=== PATIENT | male | born 1950 | race Caucasian/White ===

== ENCOUNTER 2017-01-01 10:01 | Day surgery (SDC) | payer OTHER ==
[~2017-01-01] VITALS: Ht 182.9 cm; Wt 92.0 kg
[2017-01-01] VITALS (7 sets, daily range): BP systolic 119–132; BP diastolic 62–72; PULSE 87–102; RESP 10–18
[~2017-01-01 10:01] MED LIST: AMIT25TA9 PO; AMLO-218 PO; ASPI-535 PO; CEFAZOLIN 2 GM/50 ML (PMX) 50 ML IVPB SCH; GABA400C14 PO; LISI40TA9 PO; MVI IV; OMEG-135 PO; PRAV40TA76 PO; SOD CHLORIDE 0.9% 1,000 ML IV SCH; TRAM50TA2 PO; TRHC5025 PO
[2017-01-01] MEDS ORDERED: CEFAZOLIN 2 GM/50 ML (PMX) 50 ML IVPB SCH (10:30)
[2017-01-01] MEDS ORDERED: LIDOCAINE 2% (SDV) 5 ML INJ ONE (12:40)
[2017-01-01] MEDS ORDERED: FENTAnyl 50 MCG/ML VIAL ONE (12:40)
[2017-01-01] MEDS ORDERED: SUCCINYLCHOLINE CHLORIDE 100 MG/5 ML SYG IV ONE (12:40)
[2017-01-01] MEDS ORDERED: PROPOFOL 20 ML ONE (12:40)
[2017-01-01] MEDS ORDERED: ROCURONIUM 50 MG INJ ONE (12:40)
[2017-01-01] MEDS ORDERED: MIDAZOLAM 1 MG/ML 2 ML INJ ONE (12:40)
[2017-01-01] MEDS ORDERED: GLYCOPYRROLATE 1 MG INJ ONE (12:40)
[2017-01-01] MEDS ORDERED: NEOSTIGMINE 3 MG/3 ML SYRINGE ONE (12:40)
--- NOTE | 2017-01-01 12:46 | HPN ---
Date/Time of Note Date/Time of Note DATE: 01/01/17 TIME: 12:46 Interval H&P Admission Note Pt. seen H&P reviewed: No system changes BAL FONSECA MD Jan 01, 2017 12:46
[2017-01-01] MEDS ORDERED: HYDROCODONE/APAP (5/325) TAB PO PRN (14:00)
--- NOTE | 2017-01-01 15:37 | OPR ---
DATE OF OPERATION: 01/01/2017 PREOPERATIVE DIAGNOSIS: Bladder tumors. POSTOPERATIVE DIAGNOSIS: Bladder tumors. OPERATION PERFORMED: Transurethral resection of bladder tumors. TECHNIQUE: The patient was brought to the operating room. General anesthesia was induced. The pat ient was positioned in the lithotomy position. The genital area was prepped and draped in the usual sterile manner. Time out was done. The patient was identified by his name, date, and the pr ocedure. He also received 2 grams of Ancef IV at the start of the procedure. Then, cystoscopy was done using #22 [place] cystoscope that was introduced under direct vision through the penile urethra all the way to the bladder. The bladder tumors were identified, and there were 2 on the left side o f the trigone proximal to the ureteral orifice. The remainder of the bladder appeared to be normal; however, at the end of the procedure, as the bladder was distended, there were areas that were blee ding. I thought there may be scar tissue or any possibility of recurrent tumor. The scope was jonny jose g. Then, I dilated the urethra with the [place] dilators up to #32 [place] and then introduced t he 24-[place] resectoscope sheath. I used the bipolar resectoscope and resected the tumors from the bladder and then electrocoagulated the base as well as the edges, and then the areas that were bleed ing in the bladder were all electrocoagulated. The ureteral orifices were away from the resected ar ea and were intact. Good hemostasis was obtained. At the end of the procedure, the resectoscope wa s removed. A 16-[place] Rahman catheter was inserted and connected to a drainage bag. The patient to lerated the procedure well and was transferred to recovery room in stable and satisfactory condition . Dictated By: BAL FRITZ/BRANDI Conf#: [id number] DID#: [id number]
== END 2017-01-01 16:20 | disposition home or self-care (01) ==
LOC: SDS 10:01
PROVIDERS: ATTEND Urology
DX: C67.9 Malignant neoplasm of bladder, unspecified (principal); I10 Essential (primary) hypertension; E78.5 Hyperlipidemia, unspecified
CPT/HCPCS: 52234; 87086; 88305; J0330; J2250; J2710; J3010; Z7512; Z7610

== ENCOUNTER 2017-06-11 10:34 | Day surgery (SDC) | payer MEDICARE, MEDICAID ==
[2017-06-11] VITALS (22 sets, daily range): BP systolic 112–155; BP diastolic 55–89; PULSE 78–92; RESP 10–38; Ht 182.9 cm; Wt 96.7 kg
[~2017-06-11] VITALS: Ht 182.9 cm; Wt 96.7 kg
--- NOTE | 2017-06-11 07:55 | HPN ---
Date/Time of Note Date/Time of Note DATE: 06/11/17 TIME: 07:55 Interval H&P Admission Note Pt. seen H&P reviewed: No system changes BAL FONSECA MD Jun 11, 2017 07:55
[~2017-06-11 10:34] MED LIST changes: +CEFAZOLIN 2 GM/50 ML (PMX) 50 ML IVPB ONE; -CEFAZOLIN 2 GM/50 ML (PMX) 50 ML IVPB SCH; -OMEG-135 PO; +ROCURONIUM 50 MG INJ ONE; -SOD CHLORIDE 0.9% 1,000 ML IV SCH
[2017-06-11] MEDS ORDERED: MIDAZOLAM 1 MG/ML 2 ML INJ ONE (12:22)
[2017-06-11] MEDS ORDERED: FENTAnyl 50 MCG/ML VIAL ONE ×2 (12:22→12:37)
[2017-06-11] MEDS ORDERED: PROPOFOL 20 ML ONE (12:22)
[2017-06-11] MEDS ORDERED: CEFAZOLIN 1 GM INJ ONE (12:23)
[2017-06-11] MEDS ORDERED: METOCLOPRAMIDE 10 MG INJ ONE (12:23)
[2017-06-11] MEDS ORDERED: MITOMYCIN 20 MG IS ONE (12:30)
[2017-06-11] MEDS ORDERED: EPHEDrine SULFATE 50 MG/5 ML SYG ONE (12:47)
[2017-06-11] MEDS ORDERED: OXYCODONE/ACETAMINOPHEN (5/325) TAB PO PRN ×2 (13:00)
[2017-06-11] MEDS ORDERED: MEPERIDINE 25 MG INJ IV PRN (13:00)
[2017-06-11] MEDS ORDERED: DIPHENHYDRAMINE 50 MG INJ IV PRN (13:00)
[2017-06-11] MEDS ORDERED: HYDROmorphONE (0.2 MG/ML) 10ML SYG IV PRN ×3 (13:00)
[2017-06-11] MEDS ORDERED: ONDANSETRON 4 MG INJ IV PRN (13:00)
[2017-06-11] MEDS ORDERED: NEOSTIGMINE 3 MG/3 ML SYRINGE ONE (13:18)
--- NOTE | 2017-06-11 13:49 | OPR ---
Date/Time of Note Date/Time of Note DATE: 06/11/17 TIME: 13:40 Operative Report Procedure Date: Jun 11, 2017 Preoperative Diagnosis Recurrent bladder tumors Postoperative Diagnosis Recurrent bladder tumors Operation/Procedure Performed Transurethral resection of bladder tumors and intravesical instillation of 40 mg of mitomycin-C in 40 mL of normal saline Surgeon Onel Huerta House Worker None Anesthesia Type: general Anesthesiologist: ARTURO BELLO MD Estimated Blood Loss: 0 - 10 ml's Transfusion none Specimen Bladder tumor Grafts/Implants none Tubes/Drains Rahman catheter Complications none Pt Condition Post Procedure: stable Disposition: PACU Indications Recurrent bladder tumors Procedure Description The patient was brought to the operating room and given general anesthesia. He was positioned in the lithotomy position. He was given 2 g of Ancef IV at the start of the procedure. Timeout was done, the patient was identified by his name, birthdate and the procedure. The genital area was prepped and draped in the usual sterile manner. A 26 [place] bipolar resectoscope was introduced under direct vision through the penile urethra all the way to the bladder. The tumor on the left side of the trigone and proximal to the left ureteral orifice was visualized and the trigone area was very friable and he was bleeding from different areas of the bladder that I had to electrocoagulate. The bladder was inspected thoroughly and there was no other papillary tumor. The tumor on the left side was resected and piece of muscle was obtained with it at the same time. The base and the edges of the resected tumor were electrocoagulated and good hemostasis was obtained. All the areas that were bleeding were electrocoagulated. The resectoscope was then removed and a 16 [place] Rahman catheter was inserted into the bladder. the balloon was inflated with 10 mL of sterile water then the 40 mL of the mitomycin-C were instilled into the bladder and the catheter was clamped with 2 clamps and connected to a drainage back but no drainage would come out since the catheter is clamped. The patient was then transferred to recovery room in a stable and satisfactory condition. In the recovery room he will be turning every 15 minutes on his back on his left side on his stomach on his right side for 2 hours then the Rahman catheter will be unclamped and the mitomycin-C will be drained into the drainage which will be disposed off in the hazardous material container. The Rahman catheter will be connected to a leg bag and the patient will come to my office next week to have the catheter removed. ONEL HUERTA MD Jun 11, 2017 13:49
[2017-06-11] MEDS ORDERED: HYDROCODONE/APAP (5/325) TAB PO PRN (14:00)
== END 2017-06-11 16:36 | disposition home or self-care (01) ==
LOC: SDS 10:34
PROVIDERS: ATTEND Urology
DX: C67.9 Malignant neoplasm of bladder, unspecified (principal); I10 Essential (primary) hypertension; E78.5 Hyperlipidemia, unspecified
CPT/HCPCS: 52234; 88305; J0690; J2250; J2710; J2765; J3010

== ENCOUNTER 2019-02-28 08:54 | Day surgery (SDC) | payer MEDICARE ==
[~2019-02-28] VITALS: Ht 182.9 cm; Wt 92.4 kg
[~2019-02-28 08:54] MED LIST changes: -AMIT25TA9 PO; -CEFAZOLIN 2 GM/50 ML (PMX) 50 ML IVPB ONE; -GABA400C14 PO; +LISI40TA3 PO; -LISI40TA9 PO; -MVI IV; -ROCURONIUM 50 MG INJ ONE; -TRAM50TA2 PO; -TRHC5025 PO
[2019-02-28] MEDS ORDERED: triamterene (09:35)
[2019-02-28] MEDS ORDERED: GABA-528 PO (09:38)
[2019-02-28] MEDS ORDERED: HYDR12.58 PO (09:38)
[2019-02-28] MEDS ORDERED: TRHC5025 PO (09:39)
--- NOTE | 2019-02-28 10:03 | PREAC ---
Date/Time of Note Date/Time of Note DATE: 02/28/19 TIME: 10:01 Anesthesia Eval and Record Evaluation Time Pre-Procedure Interview DATE: 02/28/19 TIME: 10:01 Age 68 Sex male NPO: 8 hrs Preoperative diagnosis Occult Blood Planned procedure Colonoscopy Past Medical History Past Medical History: Includes Cardio: HTN, Dyslipidemia Surgery & Anesthesia Issues No known issue Meds Anticoagulation: No Beta Kim within 24 hr: No Reason Beta Kim not given: Pt. not on B-Kim Reported Medications Triamterene-HCTZ* (Triamterene-HCTZ*) 50 - 25 Mg Cap, 37.5 CAP PO DAILY, CAP 02/28/19 Gabapentin* (Gabapentin*) 800 Mg Tablet, 800 MG PO TID, #90 TAB 02/28/19 Amlodipine Besylate* (Norvasc*) 10 Mg Tablet, 10 MG PO DAILY, TAB 08/08/16 Lisinopril* (Lisinopril*) 40 Mg Tablet, 40 MG PO DAILY, #30 TAB 08/08/16 Pravastatin Sodium* (Pravastatin Sodium*) 40 Mg Tablet, 40 MG PO HS, TAB 08/08/16 Aspirin Ec (Aspir 81) 81 Mg Tablet.dr, 81 MG PO DAILY, #30 TAB 08/08/16 Meds reviewed: Yes Allergies Coded Allergies: No Known Allergy (Unverified , 06/11/17) Allergies Reviewed: Yes Labs/Studies Labs Reviewed: Reviewed by anesthesiologist test: N/A Pre-procedure Exam Airway: Adequate mouth opening Mallampati: Mallampati II Teeth: Normal Lung: Normal Heart: Normal ASA Physical Status ASA physical status: 2 Emergency: None Planned Anesthetic General/MAC: MAC Pre-operative Attestations Prior to commencing anesthesia and surgery, the patient was re-evaluated, there was verification of: *The patient's identity *The results of appropriate recent lab work and preoperative vital signs *The above evaluation not changing prior to induction *Anesthetic plan, risk benefits, alternative and complications discussed with patient/family; questions answered; patient/family understands, accepts and wishes to proceed. AKIAR BRIGGS MD Feb 28, 2019 10:03
[2019-02-28] MEDS ORDERED: PROPOFOL 60 ML ONE (10:05)
[2019-02-28 10:08] VITALS: Ht 182.9 cm; Wt 92.4 kg
[2019-02-28 10:10] VITALS: BP 140/67; PULSE 99; RESP 23
--- NOTE | 2019-02-28 10:36 | PAC ---
Date/Time of Note Date/Time of Note DATE: 02/28/19 TIME: 10:36 Post-Anesthesia Notes Post-Anesthesia Note Last documented vital signs VSS Activity: WNL Respiratory function: WNL Cardiovascular function: WNL Mental status: Baseline Pain reasonably controlled: Yes Hydration appropriate: Yes Nausea/Vomiting absent: Yes AKIRA BRIGGS MD Feb 28, 2019 10:36
[2019-02-28 11:05] VITALS: BP 115/62; PULSE 77; RESP 19
== END 2019-02-28 12:47 | disposition home or self-care (01) ==
LOC: GIL 08:54
PROVIDERS: ATTEND Internal Medicine Gastroenterology
DX: Z12.11 Encounter for screening for malignant neoplasm of colon (principal); K64.8 Other hemorrhoids; K57.30 Diverticulosis of large intestine without perforation or abscess without bleeding; D12.6 Benign neoplasm of colon, unspecified; I10 Essential (primary) hypertension; E78.5 Hyperlipidemia, unspecified; Z79.82 Long term (current) use of aspirin
CPT/HCPCS: 88305